=== PATIENT | male | born 1995 | race Caucasian/White ===

== ENCOUNTER 2018-09-18 11:55 | Emergency (ER) | payer MEDICAID ==
[2018-09-18] MEDS: ACETAMINOPHEN 325 MG TAB PO (13:15)
[2018-09-18] MEDS: CEFAZOLIN 2 GM/50 ML (PMX) 50 ML IVPB (13:16)
[2018-09-18] MEDS: KETOROLAC 30 MG INJ IV (13:16)
[2018-09-18] MEDS: DEXAMETHASONE 10 MG/ML 1 ML INJ IV (13:16)
[2018-09-18] MEDS: SOD CHLORIDE 0.9% 1,000 ML IV (13:16)
== END 2018-09-18 14:50 | disposition home or self-care (01) ==
LOC: FTE 11:55
DX: J03.90 Acute tonsillitis, unspecified (principal)
CPT/HCPCS: 96365; 96375; 99284-25